=== PATIENT | female | born 1990 | race Caucasian/White ===

== ENCOUNTER 2017-10-26 12:15 | Day surgery (SDC) | payer SELFPAY ==
[~2017-10-26 12:15] MED LIST: AMOX500 PO; Bactrim Ds Tab1 EACH PO; FERR325 PO; HYDACE5 PO; HYDGUAL120 PO; IBUP800 PO; LABE100 PO; LABE200 PO; Labetalol HCl300 MG PO; NAPR500 PO; OXYACE5T PO; PENVK500 PO; RXOXYACE PO; Verotin-Gr Cap1 EACH PO
== END 2017-10-26 23:09 | disposition home or self-care (01) ==
LOC: WOUND 12:15
PROC: 0J983ZZ Drainage of Abdomen Subcutaneous Tissue and Fascia, Percutaneous Approach (ICD-10-PCS; principal; 2017-10-26)
DX: O86.0 Infection of obstetric surgical wound (principal); E66.9 Obesity, unspecified
CPT/HCPCS: G0463

== ENCOUNTER → 2019-10-14 | Outpatient (CLI) | payer SELFPAY ==
[~2019-10-14] MED LIST changes: +HYOS.125 PO; +ONDA4ODT MM; +Zantac150 MG PO
[2019-10-14 14:49] LABS: BASOPHILS ABSOLUTE AUTO 0.03 K/mm3 (0.00-0.23); BASOPHILS PERCENT AUTO 1 % (0-2); EOSINOPHILS PERCENT AUTO 2 % (0-6); Hematocrit 41.4 % (33.0-51.0); Hemoglobin 13.6 g/dL (11.5-16.0); IMMATURE GRAN ABSOLUTE AUTO 0.01 K/mm3 (0.00-0.10); IMMATURE GRAN PERCENT AUTO 0 % (0-1); LYMPHOCYTES ABSOLUTE AUTO 1.47 K/mm3 (0.84-5.20); LYMPHOCYTES PERCENT AUTO 23 % (21-46); MONOCYTES ABSOLUTE AUTO 0.61 K/mm3 (0.16-1.47); MONOCYTES PERCENT AUTO 9 % (4-13); Mean Corpuscular HGB Conc 32.9 g/dL (31.5-36.5); Mean Corpuscular Volume 91 fL (80-100); Mean Platelet Volume 10.3 fL (9.1-12.4); NEUTROPHILS ABSOLUTE AUTO 4.25 K/mm3 (1.96-9.15); NEUTROPHILS PERCENT AUTO 66 % (41-73); Platelet Count 291 K/mm3 (150-400); RDW Coefficient Variation 12.9 % (11.7-14.2); RDW Standard Deviation 43.2 fL (35.1-46.3); Red Blood Cell Count 4.53 M/mm3 (3.80-5.20); White Blood Cell Count 6.47 K/mm3 (4.00-11.30)
[2019-10-14 15:03] LABS: Alanine Aminotransfer (ALT/SGP 22 U/L (12-78); Albumin, Blood 4.1 g/dL (3.4-5.0); Albumin/Globulin Ratio 1.3 (0.8-1.8); Alk Phos 53 U/L (50-136); Anion Gap 4 mmol/L (6-16); Aspartate Aminotrans (AST/SGOT 17 U/L (12-37); Bilirubin, Direct 0.2 mg/dL (0.0-0.3); Bilirubin, Indirect 0.5 mg/dL (0.1-0.7); Bilirubin, Total 0.7 mg/dL (0.1-1.0); CO2, Blood 27 mmol/L (21-32); Calcium, Blood 9.2 mg/dL (8.5-10.1); Chloride, Blood 107 mmol/L (98-108); Creatinine, Blood 0.75 mg/dL (0.40-1.00); Globulin, Blood 3.2 g/dL (2.2-4.0); Glomerular Filtration Rate >60 (60-); Glucose, Blood 101 mg/dL (70-99); Potassium, Blood 4.3 mmol/L (3.5-5.5); Sodium, Blood 138 mmol/L (136-145); Total Protein, Blood 7.3 g/dL (6.4-8.2)
[2019-10-14 15:05] LABS: Blood Urea Nitrogen 8 mg/dL (8-24); Bun/Creatinine Ratio 10.6 (12.0-20.0)
== END | disposition home or self-care (01) ==
LOC: LAB SHORT 13:16 → LAB 13:16
PROVIDERS: Internal Medicine Nephrology
DX: N18.1 Chronic kidney disease, stage 1 (principal); D63.1 Anemia in chronic kidney disease
CPT/HCPCS: 80053; 82248; 84100; 85025

== ENCOUNTER → 2019-12-16 | Outpatient (CLI) | payer SELFPAY | LOC: LAB 10:48 → LAB SHORT 10:48 | DX: N18.2 Chronic kidney disease, stage 2 (mild) (principal); D63.1 Anemia in chronic kidney disease; R73.09 Other abnormal glucose | CPT/HCPCS: 83036 ==

== ENCOUNTER → 2020-01-31 | Outpatient (CLI) | payer SELFPAY ==
[2020-01-31 19:14] LABS: Bilirubin, Urine Neg (Neg); Blood, Urine Neg (Neg); Glucose Qualitative, Urine Neg (Neg); Ketones, Urine Neg (Neg); Leukocyte Esterase, Urine Neg (Neg); Nitrite, Urine Neg (Neg); Protein, Urine Neg (Neg); Urobilinogen, Urine NORM (Normal); pH, Urine 6.5 (5.0-8.0)
[2020-01-31 19:19] LABS: Appearance, Urine Clear (Clear); Color, Urine Yellow (P-Yellow); Red Blood Cells, Urine 0-2 /hpf (0-2)
[2020-01-31 19:20] LABS: Bacteria Few /hpf; Squamous Epithelial Cells Few /hpf (Few)
== END | disposition home or self-care (01) ==
LOC: LAB SHORT 16:40 → LAB 16:40
PROVIDERS: Internal Medicine Nephrology
DX: N39.0 Urinary tract infection, site not specified (principal)
CPT/HCPCS: 81001; 81003; 87086